=== PATIENT | male | born 1955 | race Caucasian/White ===

== ENCOUNTER 2017-12-27 08:21 | Day surgery (SDC) | payer MEDICAID, SELFPAY ==
[2017-12-27] VITALS (8 sets, daily range): BP systolic 115–157; BP diastolic 68–85; PULSE 61–96; RESP 10–16; TEMP 36.3–36.7; O2SAT 96–98
[2017-12-27 08:59] LABS: Hematocrit 41.8 % (40-54); Hemoglobin 13.8 g/dl (13.0-16.5); Mean Corpuscular Hgb 30.9 pg (27.0-32.0); Mean Corpuscular Volume 93.7 fL (80-94); Mean Platelet Vol. 9.9 fl (6.2-12.0); Platelet Count 219 K/mm3 (150-450); RBC Distribution Width CV 12.7 % (11.6-14.6); RBC Distribution Width SD 42.9 fl (35.1-43.9); Red Blood Count 4.46 M/mm3 (4.6-6.2); White Blood Count 6.7 K/mm3 (4.4-11.0)
[2017-12-27 09:01] LABS: Scan Indicated on CBC? Y/N NO
[2017-12-27] MEDS: Bupiv/Epi 0.5% Mpf 30 ML Vial (09:37)
[2017-12-27] MEDS: Cefazolin 2 GM in 0.9% Normal Saline 100 ML IV (10:24)
--- NOTE | 2017-12-27 11:01 | PCM.OPRPT ---
Problem List (1) Umbilical hernia without obstruction and without gangrene Status: Acute Report of Operation Date of Procedure: 12/27/17 Pre-Operative Diagnosis: Umbilical hernia Post-Operative Diagnosis: Umbilical hernia Surgery/Procedure Performed:: Umbilical hernia repair Specimen's removed: None Description of Procedure: Patient was brought back to the operating room and general anesthesia was induced. The abdomen was prepped and draped in usual sterile fashion. A curvilinear incision was marked above the umbilicus and anesthetized with Marcaine. Incision was then made over the proposed site and deepened to the hernia sac. The hernia sac was dissected free from the skin on the umbilicus. The hernia was reduced and the surrounding fascia was cleaned with electrocautery. Once there was clean fascia surrounding the hernia it was measured to be around 1 cm in diameter. I elected to repair this with sutures and forego mesh due to the small size. I placed four 0 PDS sutures in a vest over pants fashion on the umbilical site. This imbricated the hernia nicely and sealed it well. Next the cavity was irrigated and suctioned dry. The umbilical skin was sutured to the anterior abdominal fascia with 2 3-0 Vicryl sutures. Next the skin incision was approximated with interrupted 3-0 Vicryl sutures and a running 4-0 Monocryl suture. Steri-Strips and bandage were then applied. Patient tolerated the procedure well and was brought to PACU in stable condition.
--- NOTE | 2017-12-27 11:05 | PCM.DC.HER ---
Discharge Diet: Light diet - advance as tolerated Discharge Activity: Return to Normal Activity, May Not Drive - for 2-3 days or while taking narcotic pain meds., May Shower - with the bandage in place 1-2 days after surgery. Lifting Restrictions: 20 pounds for 6 weeks. Additional Activity Instructions:: Climbing stairs is fine, walking is encouraged. Sitting in bed may be uncomfortable. Sitting up using your lateral muscles (sitting up sideways) is usually more comfortable. Do not drive, work heavy equipment of sign legal documents for 24 hours. Pain medications may cause nausea, you should typically eat light foods as you take your pain medications. Pain medications may also cause constipation. If you have difficulty with this, discuss with your doctor. Call your doctor if your incision/area has: Continuous Slow Oozing, Sudden Increased Bleeding, Increased Pain/ Swelling, Increased Redness, Foul Smelling Discharge Call your doctor if you observe: Fever of 101 or Higher Suture Line Care: Avoid Pulling/Pushing, Avoid Pinching/Bending Change Dressing in (Days):: 3 - Leave steri-strips for 1 week. May protect with a guaze bandaid. Cleanse incision/area with: Keep Dressing Clean & Dry Allergies/Adverse Reactions: Allergies No Known Allergies Allergy (Verified 12/19/17 08:46) Medications to take at Discharge Albuterol IH (ProAir) [Proair Hfa (SP)Vent Pts] 1 - 2 puff INHALATION Q4H PRN PRN 02/09/16 Fluticasone Prop 100 mcg [Flovent Diskus 100 Mcg] 1 puff INHALATION BID 02/09/16 Ergocalciferol [Vitamin D] 50,000 unit PO MO 12/26/17 Multivitamin [Multiple Vitamins] 1 each PO DAILY 12/26/17 Oxycodone HCl/Acetaminophen [Percocet 5/325] 1 - 2 tablet PO Q4H PRN PRN 7 Days #20 tablet 12/27/17 The following prescriptions were given: Oxycodone HCl/Acetaminophen [Percocet 5/325] 1 - 2 tablet PO Q4H PRN PRN 7 Days #20 tablet PRN Reason: Pain Primary Care Physician: Radha Thomas [Primary Care Provider] - Test Results: Test results from this visit will be discussed in further detail at your follow-up appointment, if applicable. Please Follow Up With: Pradeep Larson MD When: Please call to schedule 2 week follow up appointment. [phone]
[2017-12-27] MEDS: oxyCODONE 5 MG Tablet PO (12:38)
== END 2017-12-27 13:28 | disposition home or self-care (01) ==
LOC: SDC 08:22 → AC 08:24
PROVIDERS: Anesthesiology; Visit Provider Surgery
PROC: (CPT 49585; principal; 2017-12-27 09:50)
DX: K42.9 Umbilical hernia without obstruction or gangrene (principal); J44.9 Chronic obstructive pulmonary disease, unspecified; F17.200 Nicotine dependence, unspecified, uncomplicated; Z79.899 Other long term (current) drug therapy
CPT/HCPCS: 49585; 36415; 85027; 93005; J7120; J2405

== ENCOUNTER → 2018-05-02 06:50 | Outpatient (CLI) | payer MEDICAID, SELFPAY ==
--- NOTE | 2018-05-04 14:47 | PFT ---
INTRODUCTION: The patient is a 63-year-old male that presents for pulmonary function testing secondary to a diagnosis of COPD. Respiratory therapy reports good patient effort. Bronchodilators were used during testing. INTERPRETATION: Forced expiration spirometry demonstrates the presence of a severe large airways obstructive ventilatory defect. There was a significant response to aerosolized bronchodilators. Spirograms are of good quality and do not plateau indicating slow emptying of the lungs. Body plethysmography was performed and reveals an elevated RV to 164% of predicted, diffusing capacity by single breath CO was within normal limits at 92% of predicted. IMPRESSION: These pulmonary function studies demonstrate the presence of a partially reversible severe large airways obstructive ventilatory defect with associated air trapping and preserved diffusing capacity.
--- OUTSIDE RECORDS SUMMARY | 2018-08-03 11:24 | XMS RPT_ITS ---
:1955 Author Organization OHIP Care Team Providers Name Role Phone CLINIC, [facility] Primary Care Unavailable Alea Edwards Attending Unavailable Alea Edwards Referring Unavailable Alea Edwards Consulting Unavailable Siddhartha Knutson D.O. Attending Unavailable Alea Edwards Referring Unavailable Pradeep Larson Attending Unavailable Alea Edwards Referring Unavailable Pradeep Larson Attending Unavailable Pradeep Larson Referring Unavailable [facility] Primary [facility] Unavailable Alea Edwards Consulting Unavailable Pradeep Larson Attending Unavailable Pradeep Larson Referring Unavailable [facility] Primary Care Unavailable Alea Edwards Consulting Unavailable Pradeep Larson Consulting Unavailable Pradeep Larson Attending Unavailable [facility] Referring Unavailable [facility], [facility] Primary Care Unavailable PROBLEMS PROBLEMS DATE TYPE CONDITION / CODE ATTENDING STATUS SOURCE 05/18/2018 Unknown J44.9 - Chronic Bala Cobb obstructive D.O. [facility] pulmonary Hospital disease, Repository unspecified / J44.9(ICD-10) 12/27/2017 Unknown K42.9 - Umbilical [place], Active [place] hernia without Pradeep Community obstruction or Hospital gangrene / Repository K42.9(ICD-10) PROCEDURES PROCEDURES No Procedure Records FoundRESULTS RESULTS PULMONARY FUNCTION Observed: 05/04/2018 Status: F Source: [place] TEST 2:49 PM [facility] REPOSITORY [facility] Pulmonary Services/Neurology [address] [place] [address] MR#: [id number] Acct: [id number] Name: JOSHUA XIAO Rep #: [id number] : 1955 63 From: Siddhartha Knutson DO Referring Dr: Alea Edwards Status: REG CLI Ordering Dr: Date: Location: [facility] Sex: M C INTRODUCTION: The patient is a 63-year-old male that presents for pulmonary function testing secondary to a diagnosis of COPD. Respiratory therapy reports good patient effort. Bronchodilators were used during testing. INTERPRETATION: Forced expiration spirometry demonstrates the presence of a severe large airways obstructive ventilatory defect. There was a significant response to aerosolized bronchodilators. Spirograms are of good quality and do not plateau indicating slow emptying of the lungs. Body plethysmography was performed and reveals an elevated RV to 164% of predicted, diffusing capacity by single breath CO was within normal limits at 92% of predicted. IMPRESSION: These pulmonary function studies demonstrate the presence of a partially reversible severe large airways obstructive ventilatory defect with associated air trapping and preserved diffusing capacity. 05/04/18 144 <Electronically signed by Siddhartha Knutson DO> Date Siddhartha Knutson DO CC: Alea CALHOUN; [facility] Date Dictated: 05/04/181446 Date Transcribed: 05/04/181446 Grain Merchandising Manager: VIDYA Signed SURGERY VISIT REPORT Observed: 01/10/2018 Status: F Source: [place] 8:59 AM [facility] REPOSITORY [facility] [address] [place], [place] [address] OFFICE VISIT Date of Service: 01/10/18 MR#: [id number] Acct: [id number] Name: JOSHUA XIAO Rep #: [id number] : 1955 Provider: Pradeep Larson MD Age/Sex: 62/M Location: [facility] Status: Signed Intake Intake Visit Reasons: Hernia Surgery 12/27 Creative Services Intern Required: No Is patient in pain?: No Allergies No Known Allergies Allergy (Verified 01/10/18 08:16) Medications Albuterol IH (ProAir) [Proair Hfa (SP)Vent Pts] 1 - 2 puff INHALATION Q4H PRN PRN 02/09/16 [History Confirmed 01/10/18] Fluticasone Prop 100 mcg [Flovent Diskus 100 Mcg] 1 puff INHALATION BID 02/09/16 [History Confirmed 01/10/18] Ergocalciferol [Vitamin D] 50,000 unit PO MO 12/26/17 [History Confirmed 01/10/18] Multivitamin [Multiple Vitamins] 1 ea PO DAILY 12/26/17 [History Confirmed 01/10/18] Oxycodone HCl/Acetaminophen [Percocet 5/325] 1 - 2 tab PO Q4H PRN PRN 7 Days #20 tab 12/27/17 [Rx Confirmed 01/10/18] Subjective Details: Patient is doing well since his hernia repair. He reports no pain or bulging Objective Details: Abdomen is soft, nontender, nondistended. His umbilical hernia incision is clean dry and intact with no bulging. Assessment AND Plan Problems 1. Umbilical hernia without obstruction and without gangrene K42.9 Plan 1. She is doing well after his hernia repair. I recommended that he spend another 4 weeks with no lifting over 20 pounds. After that he can have activity as tolerated. 2. Follow-up as needed. Pradeep Larson MD Pager: [facility] [address] [place] [address], [address] [place] [address] Office: Coding Level of Care Code Global Post Op Diagnoses Umbilical hernia without obstruction and without gangrene K42.9 01/10/18 0859 <Electronically signed by Pradeep Larson MD> Date [facility] Signature: Date (if applicable) CC: [facility] 12 LEAD ELECTROCARDIOGRAM Observed: 12/30/2017 Status: F Source: [place] 1:54 PM [facility] REPOSITORY [facility] Cardiovascular Services [address] [place], [place] [address] [address] 12 Lead EKG 12/27/17 0851 MR#: [id number] Acct: [id number] Name: JOSHUA XIAO Rep #: [id number] : 1955 62 From: Lowell Lay MD Attending Dr: Pradeep Larson MD Status: DEP [facility] [place]ing [place]: Marco A Knight MD Date: 12/27/17 Location[place] [facility] Sex: M C Admitted: Test Reason : PREOP Blood Pressure : / mmHG Vent. Rate : 055 BPM Atrial Rate : 055 BPM P-R Int : 180 ms QRS Dur : 080 ms QT Int : 436 ms P-R-T Axes : 057 054 075 degrees QTc Int : 417 ms Sinus bradycardia Otherwise normal ECG When compared with ECG of 04-OCT-2011 02:08, Vent. rate has decreased BY 60 BPM Confirmed by LOWELL LAY MD ([id number]), magazine editor MARISSA DAVE ([id number]) on 12/30/2017 1:53:32 PM Referred By: Pradeep Larson Confirmed By:LOWELL LAY MD 12/30/17 7014 Date Lowell Lay MD CC: Pradeep Larosn MD; Marco A Knight MD; [facility] Signed DISCHARGE INSTRUCTION Observed: 12/27/2017 Status: F Source: [place] 11:06 AM [facility] REPOSITORY [facility] Medical Records Department [address] [place] [address] Instructions for Home/Discharge Instructions 12/27/17 1105 MR#: [id number] Acct: [id number] Name: JOSHUA XIAO Rep #: [id number] : 1955 62 From: Pradeep Larson MD PCP: [facility] Status: REG SDC Discharge Diet: Light diet - advance as tolerated Discharge Activity: Return to Normal Activity, May Not Drive - for 2-3 days or while taking narcotic pain meds., May Shower - with the bandage in place 1-2 days after surgery. Lifting Restrictions: 20 pounds for 6 weeks. Additional Activity Instructions:: Climbing stairs is fine, walking is encouraged. Sitting in bed may be uncomfortable. Sitting up using your lateral muscles (sitting up sideways) is usually more comfortable. Do not drive, work heavy equipment of sign legal documents for 24 hours. Pain medications may cause nausea, you should typically eat light foods as you take your pain medications. Pain medications may also cause constipation. If you have difficulty with this, discuss with your doctor. Call your doctor if your incision/area has: Continuous Slow Oozing, Sudden Increased Bleeding, Increased Pain/ Swelling, Increased Redness, Foul Smelling Discharge Call your doctor if you observe: Fever of 101 or Higher Suture Line Care: Avoid Pulling/Pushing, Avoid Pinching/Bending Change Dressing in (Days):: 3 - Leave steri-strips for 1 week. May protect with a guaze bandaid. Cleanse incision/area with: Keep Dressing Clean AND Dry Allergies/Adverse Reactions: Allergies No Known Allergies Allergy (Verified 12/19/17 08:46) Medications to take at Discharge Albuterol IH (ProAir) [Proair Hfa (SP)Vent Pts] 1 - 2 puff INHALATION Q4H PRN PRN 02/09/16 Fluticasone Prop 100 mcg [Flovent Diskus 100 Mcg] 1 puff INHALATION BID 02/09/16 Ergocalciferol [Vitamin D] 50,000 unit PO MO 12/26/17 Multivitamin [Multiple Vitamins] 1 each PO DAILY 12/26/17 Oxycodone HCl/Acetaminophen [Percocet 5/325] 1 - 2 tablet PO Q4H PRN PRN 7 Days #20 tablet 12/27/17 The following prescriptions were given: Oxycodone HCl/Acetaminophen [Percocet 5/325] 1 - 2 tablet PO Q4H PRN PRN 7 Days #20 tablet PRN Reason: Pain Primary Care Physician: Montana Gottlieb,Jusuts Mack [Primary Care Provider] - Test Results: Test results from this visit will be discussed in further detail at your follow-up appointment, if applicable. Please Follow Up With: Pradeep Larson MD When: Please call to schedule 2 week follow up appointment. [phone] 12/27/17 1106 <Electronically signed by Pradeep Larson MD> Date Pradeep Larson MD CC: Alea CALHOUN; [facility] OPERATIVE REPORT Observed: 12/27/2017 Status: F Source: [place] 11:04 AM [facility] REPOSITORY [facility] Medical Records Department [address] [place] [address] Operative Report 12/27/17 110 MR#: [id number] Acct: [id number] Name: JOSHUA XAIO Rep #: [id number] : 1955 62 From: Pradeep Larson MD PCP: [facility] Status: REG [facility] [place] Location: [place] [address] Problem List (1) Umbilical hernia without obstruction and without gangrene Status: Acute Report of Operation Date of Procedure: 12/27/17 Pre-Operative Diagnosis: Umbilical hernia Post-Operative Diagnosis: Umbilical hernia Surgery/Procedure Performed:: Umbilical hernia repair Specimen's removed: None Description of Procedure: Patient was brought back to the operating room and general anesthesia was induced. The abdomen was prepped and draped in usual sterile fashion. A curvilinear incision was marked above the umbilicus and anesthetized with Marcaine. Incision was then made over the proposed site and deepened to the hernia sac. The hernia sac was dissected free from the skin on the umbilicus. The hernia was reduced and the surrounding fascia was cleaned with electrocautery. Once there was clean fascia surrounding the hernia it was measured to be around 1 cm in diameter. I elected to repair this with sutures and forego mesh due to the small size. I placed four 0 PDS sutures in a vest over pants fashion on the umbilical site. This imbricated the hernia nicely and sealed it well. Next the cavity was irrigated and suctioned dry. The umbilical skin was sutured to the anterior abdominal fascia with 2 3-0 Vicryl sutures. Next the skin incision was approximated with interrupted 3-0 Vicryl sutures and a running 4-0 Monocryl suture. Steri-Strips and bandage were then applied. Patient tolerated the procedure well and was brought to PACU in stable condition. 12/27/17 1104 <Electronically signed by Pradeep Larson MD> Date Pradeep Larson MD CC: Pradeep Larson MD; Alea CALHOUN; [facility] Signed CBC-COMPLETE BLOOD CNT Collected: 12/27/2017 Status: F Source: [place] NO DIFF 8:50 AM [facility] REPOSITORY TYPE CODE TESTS RESULT OUT OF RANGE REFERENCE UNITS LAB L100.1000 4.4-11.0 K/mm3 Normal WBC 6.7 LAB L100.1200 4.6-6.2 M/mm3 Low RBC 4.46 LAB L100.1300 13.0-16.5 g/dl Normal HGB 13.8 LAB L100.1400 40-54 % Normal HCT 41.8 LAB L100.1500 80-94 fL Normal MCV 93.7 LAB L100.1600 27.0-32.0 pg Normal MCH 30.9 LAB L100.1700 32-36 g/gl Normal MCHC 33.0 LAB L100.1810 11.6-14.6 % Normal RDW CV 12.7 LAB L100.1820 35.1-43.9 fl Normal RDW SD 42.9 LAB L100.1900 150-450 K/mm3 Normal PLT 219 LAB L100.2000 6.2-12.0 fl Normal MPV 9.9 Performed By: #### L100.0500 #### [facility] [address] [place], [address] SURGERY VISIT REPORT Observed: 12/19/2017 Status: F Source: [place] 11:21 AM [facility] REPOSITORY [facility] [address] [place] [address] OFFICE VISIT Date of Service: 12/19/17 MR#: [id number] Acct: [id number] Name: JOSHUA XIAO Rep #: [id number] : 1955 Provider: Pradeep Larson MD Age/Sex: 62/M Location: [facility] Status: Signed Intake Vital Signs12/19/17 Height 6 ft 1 in 12/19/17 Weight: 228 lb Intake Visit Reasons: Umbilical Hernia Creative Services Intern Required: No Is patient in pain?: No Allergies No Known Allergies Allergy (Verified 12/19/17 08:46) Medications Albuterol IH (ProAir) [Proair Hfa (SP)Vent Pts] 1 - 2 puff INHALATION Q4H PRN PRN 02/09/16 [History Confirmed 02/09/16] Fluticasone Prop 100 mcg [Flovent Diskus 100 Mcg] 1 puff INHALATION BID 02/09/16 [History Confirmed 02/09/16] PFSH Medical History COPD (chronic obstructive pulmonary disease) (Acute) SOB (shortness of breath) (Acute) Umbilical hernia (Acute) Surgical History History of toe surgery (Acute) Social History Smoking Status: Current every day smoker alcohol intake: current alcohol intake frequency: a few times a week substance use type: does not use HPI HPI HPI: JOSHUA XIAO, is a 62 M who presents to the office today for umbilical hernia. The patient reports it is been there for a long time and it has been getting worse. He reports it is painful and laying on his side and has been growing. ROS General General: Yes weight change; no appetite, fatigue, colon cancer, breast cancer or weakness HEENT HEENT: No difficulty swallowing, eye injury, eye surgery, swollen glands or hoarseness Endo Endocrine: No thyroid disease, diabetes mellitus, thyroid cancer, Hair loss, heat intolerance or cold intolerance Skin Skin: No rash or changing moles Breast Breast: No left breast lump, right breast lump, nipple discharge, breast pain, abnormal mammogram, abnormal US or breast enlargement Musc Musculoskeletal: No back problems, arthritis, rheumatoid arthritis, gout or joint pain Cardio Cardiovascular: No murmur, pacemaker, heart disease, atrial fibrillation, high blood pressure, heart attack, heart stent, palpitations, shortness of breat with exertion or chest pain Psych Psychiatric: No depression, anxiety or hearing voices Resp Respiratory: Yes shortness of breath, No sleep apnea, No cough, Yes COPD, No asthma, No emphysema, No wheezing Gastro Gastrointestinal: No abdominal pain, No nausea or vomiting, No diarrhea, No constipation, No blood in stool, No acid reflux, No hemorrhoids, No ulcers, No gallbladder problem, No black,tarry stools [place] Hematologic: No blood thinners, No blood disorders, No bleeding, No anemia, No blood clots Neuro Neurologic: No system reviewed and no additional complaints, except as docu, No as per HPI, No abnormal walking, No abnormal hearing, No abnormal movements, No abnormal speech, No behavioral changes, No burning sensations, No confusion, No seizure-like activity, No unsteadiness, No dizziness, No localized weakness, No frequent falls, No headache(s), No lack of coordination, No loss of vision, No memory loss, No numbness, No other visual disturbances, No radiating pain, No restless legs, No sensory deficit, No fainting, No tingling, No tremor(s), No weakness, No other Exam Const General: cooperative Orientation: alert, oriented x3 Chest Breast Palpation: No nipple discharge Resp Effort AND Inspection: normal respiratory effort Auscultation: clear to auscultation bilaterally Cardio Rate: regular rate Rhythm: regular rhythm Heart Sounds: no murmurs GI Other: Abdomen is soft, nontender, nondistended. The patient has an incarcerated umbilical hernia. Assessment AND Plan Problems 1. Incarcerated umbilical hernia K42.0 Plan 1. Patient appears to have an incarcerated umbilical hernia which was not able to be reduced in the office. It is nontender and there are no skin changes. 2. I discussed umbilical hernia repair with the patient including the risks. I discussed the risks including but not limited to bleeding, infection, injury to underlying bowel. I also discussed that if the hernia was over a centimeter I will be placing mesh. I also described the risk of recurrence and mesh infection. Pradeep Larson MD Pager: [facility] [address] [place] [address], [address] [place] [address] Office: Coding Level of Care Code Off vis,new,level 3 Diagnoses Incarcerated umbilical hernia K42.0 12/19/17 1121 <Electronically signed by Pradeep Larson MD> Date Pradeep Larson MD Cosigner Signature: Date (if applicable) CC: Alea CALHOUN ALLERGIES ALLERGIES DATE TYPE / CODE NAME / CODE REACTION SEVERITY SOURCE 01/10/2018 Drug No Known Unknown [facility] Allergy/4160 Allergies/F00 [facility] [address]117(SNOMED [id number](RXNOR Repository CT) M) ENCOUNTERS ENCOUNTERS ADMIT/DISCHARGE ACCOUNT ADMITTING ENCOUNTER LOCATION SOURCE NUMBER CLASS 05/04/2018 [id number] Ambulatory BMSBuilding:W [place] 2 [facility] Repository 05/02/2018 [id number] Ambulatory [place] 0 [facility] ing:PSN Repository 01/10/2018/ [id number] Ambulatory BMSBuilding:B [place] 8 0 MS.Counts include 234 beds at the [facility] Repository 12/27/2017/ [id number] Ambulatory [place] 8 7 [facility] ing:SDC Repository 12/27/2017 [id number] Ambulatory BMSBuilding:B [place] 3 MS.CF.Counts include 234 beds at the [facility] Repository 12/19/2017/ [id number] Ambulatory BMSBuilding:B [place] 8 9 MS.WSA [facility] Repository PAYERS PAYERS ENCOUNTER GUARANTOR PAYER SUBSCRIBER SOURCE 05/04/2018 JOSHUA De La Paz Primary JOSHUA Cortez [id number] CANAL Insurance:SCOTTE DAMEONDOB: [facility] [id number] Hospital [address]Nii: (330) PLANPolicy Number: Repository [phone] () [id number] Date:0675-85-69ZF [address] [place] [address] 33561ZB: 05/04/2018 Secondary NOT GIVENUNK [place] Insurance:SELF PAY [facility] Number: Effective Repository Date:2018-05-04 05/02/2018 JOSHUA De La Paz Primary JOSHUA De La Paz [place] [id number] CANAL Insurance:ROMAINEEYE DAMEONDOB: [facility] [id number] Hospital [address]Inj: (330) PLANPolicy Number: Repository [phone] () [id number] Date:1527-64-24TO [address] [place] [address] 79021ZR: 05/02/2018 Secondary NOT GIVENUNK [place] Insurance:SELF PAY [facility] Number: Effective Repository Date:2018-04-20 01/10/2018 JOSHUA De La Paz Primary JOSHUA De La Paz [place] [id number] CANAL Insurance:ROMAINEEYE DAMEONDOB: [facility] [id number] Hospital 30[address]Mzy: (330) PLANPolicy Number: Repository [phone] () [id number] Date:[id number] [address] [place] [address] 74199WX: 01/10/2018 Secondary NOT GIVENUNK [place] Insurance:SELF PAY [facility] Number: Effective Repository Date:2018-01-10 12/27/2017 JOSHUA De La Paz Primary JOSHUA De La Paz [place] [id number] CANAL Insurance:BUCKEYE DAMEONDOB: [facility] [id number] Hospital [address]45[address]Bzf: (330) PLANPolicy Number: Repository [phone] () [id number] Date:[id number] [address] [place] [address] 56735PD: 12/27/2017 Secondary NOT GIVENUNK [place] Insurance:SELF PAY [facility] Number: Effective Repository Date:2017-12-20 12/27/2017 JOSHUA L Primary JOSHUA [id number] CANAL Insurance:BUCKEYE SHAYANYDOB: [facility] [id number] Hospital [address]Ipd: (330) PLANPolicy Number: Repository [phone] () [id number] Date:6860-32-69YJ [address] [place] [address] 53669NM: 12/27/2017 Secondary NOT GIVENUNK [place] Insurance:SELF PAY [facility] Number: Effective Repository Date:2017-12-27 12/19/2017 JOSHUA Primary JOSHUA Cortez [id number] CANAL Insurance:BUCKEYE DAMEONDOB: [facility] [id number] Hospital [id number]: (330) PLANPolicy Number: Repository [phone] () [id number] Date:3656-77-89GW [address] [place] [address] 24864ZJ: 12/19/2017 Secondary NOT GIVENUNK [place] Insurance:SELF PAY [facility] Number: Effective Repository Date:2017-12-19
== END ==
PROVIDERS: Referring Provider Nurse Practitioner Family; Visit Provider Nurse Practitioner Family
DX: J44.9 Chronic obstructive pulmonary disease, unspecified (principal)
CPT/HCPCS: 94060; 94726; 94729

== ENCOUNTER → 2020-09-15 07:29 | Outpatient (CLI) | payer OTHER, SELFPAY ==
--- NOTE | 2020-09-15 07:48 | US_ITS ---
STUDY: THYROID ULTRASOUND REASON FOR EXAM: Male, 65 years old. THYROID disorder TECHNIQUE: Ultrasound evaluation of the thyroid was performed with real-time and static toro-scale imaging. COMPARISON: None. FINDINGS: RIGHT LOBE: The right lobe of the thyroid gland is enlarged and measures 5.2 cm x 2.1 sign by 2.1 cm. There is a homogeneous echotexture. There is a 7 mm x 6 mm x 5 mm hypoechoic solid nodule in the lower pole. There is also evidence of a 5 mm x 6 mm x 4 mm cyst in the lower pole. Adjacent to this, this also evidence of a 1 cm x 1.2 cm x 0.5 cm cyst. LEFT LOBE: The left lobe of the thyroid gland measures 4.8 cm x 2 cm x 1.6 cm. There is a homogeneous echotexture. There is a 5 mm x 4 mm x 5 mm hypoechoic solid nodule in the midpole of the left lobe. ISTHMUS: The isthmus measures 4 mm. There is a 2.3 cm x 2.1 cm x 0.8 cm benign-appearing lymph node in the left cervical region corresponding to the palpable abnormality. US/Thyroid IMPRESSION: Subcentimeter hypoechoic solid nodules in both lobes as described. 2. Small cysts in the right lobe. The palpable abnormality corresponds to a 2.3 cm x 2.1 cm x 0.8 cm lymph node. Electronically Signed: Cr Easton MD at 15:02 EDT , Service support ,
[2020-09-15 07:59] LABS: Absolute Lymphocyte Count 1.93 X10^3/uL (0.83-4.51); Absolute Neutrophil Count 3.8 X10^3/uL (2.0-7.7); Basophil# 0.04 X10^3/uL; Basophil% 0.6 % (0-1); Eosinophil# 0.14 X10^3/uL; Eosinophils% 2.1 % (0-5); Hemoglobin 14.8 g/dL (13.0-16.5); Lymphocyte # 1.93 X10^3/ul (0.83-4.51); Mean Corp Hgb Conc 32.2 g/dL (32-36); Mean Corpuscular Hgb 31.2 pg (27.0-32.0); Mean Corpuscular Volume 96.8 fL (80-94); Mean Platelet Vol. 10.5 fl (6.2-12.0); Monocyte# 0.73 X10^3/uL; NRBC Flagged by Analyzer 0 % (0-5); Neutrophil % 57.1 % (47-70); Platelet Count 247 K/mm3 (150-450); RBC Distribution Width CV 12.1 % (11.6-14.6); RBC Distribution Width SD 43.7 fl (35.1-43.9); Red Blood Count 4.75 M/mm3 (4.6-6.2); White Blood Count 6.7 K/mm3 (4.4-11.0)
[2020-09-15 08:32] LABS: AST(SGOT) 54 U/L (15-37); Alanine Aminotransfer ALT/SGPT 110 U/L (16-61); Alkaline Phosphatase 88 U/L (45-117); Anion Gap 8 (5-15); BUN 12 mg/dL (7-18); BUN/Creat Ratio 12.4 RATIO (10-20); Calcium,Total 9.1 mg/dL (8.5-10.1); Chloride 101 mmol/L (98-107); Cholesterol 238 mg/dL (200); Creatinine, Serum 0.96 mg/dL (0.70-1.30); EST Glomerular Filtration Rate 83 mL/min (>60); Est Glom Filt Rate - Afr Amer 101 mL/min (>60); Globulin 3.9 g/dL (2.2-4.2); Glucose 100 mg/dL (74-106); High Density Lipoprotein 61 mg/dL; PSA,Total - Annual Screen 1.54 ng/mL (0.00-4.00); Potassium 3.9 mmol/L (3.5-5.1); Protein, Total 7.9 g/dL (6.4-8.2); Sodium Level 137 mmol/L (136-145); T4 Free Direct 0.94 ng/dL (0.76-1.46); Thyroid Stim Hormone (TSH) 2.16 uIU/mL (0.358-3.74); Triglycerides 169 mg/dL; Very Low Density Lipoprotein 34 mg/dL (5-40)
[2020-09-16 11:01] LABS: Thyroid Peroxidase AB < 9 IU/mL (0-34)
== END ==
PROVIDERS: PCP Nurse Practitioner Adult Health; Referring Provider Nurse Practitioner Adult Health; Visit Provider Nurse Practitioner Adult Health
DX: E07.89 Other specified disorders of thyroid (principal)
CPT/HCPCS: 36415; 76536; 80053; 80061; 84153; 84439; 84443; 85025; 86376; G0103

== ENCOUNTER → 2020-11-12 09:52 | Outpatient (CLI) | payer OTHER, SELFPAY ==
[2020-11-12 11:24] LABS: Absolute Lymphocyte Count 1.85 X10^3/uL (0.83-4.51); Absolute Neutrophil Count 5.1 X10^3/uL (2.0-7.7); Basophil# 0.03 X10^3/uL; Basophil% 0.4 % (0-1); Eosinophil# 0.14 X10^3/uL; Eosinophils% 1.8 % (0-5); Hematocrit 46.1 % (40-54); Lymphocyte # 1.85 X10^3/ul (0.83-4.51); Lymphocyte % 23.4 % (19-41); Mean Corp Hgb Conc 32.5 g/dL (32-36); Mean Corpuscular Hgb 31.3 pg (27.0-32.0); Mean Corpuscular Volume 96.2 fL (80-94); Mean Platelet Vol. 10.8 fl (6.2-12.0); Monocyte# 0.72 X10^3/uL; Monocyte% 9.1 % (0-10); NRBC Flagged by Analyzer 0 % (0-5); Neutrophil # 5.12 X10^3/uL (2.7-7.7); Neutrophil % 64.9 % (47-70); Platelet Count 262 K/mm3 (150-450); RBC Distribution Width CV 12.3 % (11.6-14.6); RBC Distribution Width SD 43.9 fl (35.1-43.9); Red Blood Count 4.79 M/mm3 (4.6-6.2); White Blood Count 7.9 K/mm3 (4.4-11.0)
[2020-11-12 11:53] LABS: BNP,B-Type NATRIURETIC PEPTIDE 58.9 pg/mL (0-100)
[2020-11-12 11:55] LABS: ALB/GLOB Ratio 1.1 RATIO (0.9-2.4); AST(SGOT) 67 U/L (15-37); Alanine Aminotransfer ALT/SGPT 122 U/L (16-61); Alkaline Phosphatase 95 U/L (45-117); Anion Gap 7 (5-15); BUN 9 mg/dL (7-18); BUN/Creat Ratio 9.4 RATIO (10-20); Calcium,Total 9.4 mg/dL (8.5-10.1); Chloride 104 mmol/L (98-107); Creatinine, Serum 0.96 mg/dL (0.70-1.30); EST Glomerular Filtration Rate 84 mL/min (>60); Est Glom Filt Rate - Afr Amer 101 mL/min (>60); Globulin 3.8 g/dL (2.2-4.2); Glucose 87 mg/dL (74-106); Potassium 3.9 mmol/L (3.5-5.1); Protein, Total 7.8 g/dL (6.4-8.2); Sodium Level 138 mmol/L (136-145)
== END ==
DX: R60.0 Localized edema (principal); R06.02 Shortness of breath
CPT/HCPCS: 36415; 80053; 83880; 85025